=== PATIENT | female | born 1970 | race Caucasian/White ===

== ENCOUNTER → 2023-03-20 | Outpatient (CLI) | payer BC ==
--- NOTE | 2023-03-21 09:02 | MM ---
Reason for Exam: Screening (asymptomatic). Patient History: Menarche at age 17. First Full-Term at age 26. Premenopausal. 2009, Bilateral Implants. Risk Values: Leanna 5 year model risk: 1.0%. NCI Lifetime model risk: 8.9%. Tissue Density: The breast tissue is extremely dense which could obscure a lesion on mammography. Findings: Analyzed By CAD. There is no suspicious group of microcalcifications or new suspicious mass in either breast. Bilateral implants are intact. Overall Assessment: Benign, BI-RAD 2 Management: Screening Mammogram of both breasts in 1 year. . Patient should continue monthly self-breast exams. A clinical breast exam by your physician is recommended on an annual basis. This exam should not preclude additional follow-up of suspicious palpable abnormalities. Note on Leanna scores and lifetime risk: 1. A Leanna score greater than 3% is considered moderate risk. If this is the case, consider specialist referral to assess eligibility for a risk reducing agent. 2. If overall lifetime risk for the development of breast cancer is 20% or higher, the patient may qualify for future screening with alternating mammogram and breast MRI. Electronically signed and approved by: Liborio Tidwell M.D. Radiologis
== END | disposition home or self-care (01) ==
LOC: RADMAMWWP 15:54
PROVIDERS: ATTEND Family Medicine
DX: Z12.31 Encounter for screening mammogram for malignant neoplasm of breast (principal)
CPT/HCPCS: 77063; 77067

== ENCOUNTER → 2023-05-31 | Outpatient (CLI) | payer BC ==
--- NOTE | 2023-05-31 17:07 | US ---
EXAMINATION TYPE: US pelvic complete DATE OF EXAM: 05/31/2023 COMPARISON: NONE CLINICAL INDICATION: Female, 52 years old with history of N92.6 IRREG MENSES; Pt states abnormal mens es, pt states non-stop bleeding in the month of April TECHNIQUE: Transabdominal (TA). Transabdominal sonographic images of the pelvis were acquired. Date of LMP: Beginning of April EXAM MEASUREMENTS: Uterus: 11.2 x 5.1 x 6.6 cm Endometrial Stripe: 0.9 cm Right Ovary: 2.5 x 1.5 x 2.1 cm Left Ovary: 4.3 x 3.1 x 3.7 cm 1. Uterus: Anteverted Heterogeneous, probable fibroid Right side of uterus= 3.6 x 2.9 x 3.6 cm 2. Endometrium: wnl 3. Right Ovary: wnl 4. Left Ovary: Two cystic areas within left ovary- larger one has debris/septations within= 2.1 x 2. 1 x 2.6 cm 5. Bilateral Adnexa: wnl 6. Posterior cul-de-sac: wnl IMPRESSION: 1. No evidence for acute process. 2. Endometrium within normal limits for size. 3. Fibroid uterus. 4. Probable left hemorrhagic ovary.
== END | disposition home or self-care (01) ==
LOC: RADUSWWP 15:36
PROVIDERS: ATTEND Family Medicine
DX: N92.6 Irregular menstruation, unspecified (principal); D25.9 Leiomyoma of uterus, unspecified
CPT/HCPCS: 76856

== ENCOUNTER → 2024-10-15 | Outpatient (CLI) | payer BC ==
--- NOTE | 2024-10-15 09:40 | MM ---
Reason for Exam: Clinical finding. Last mammogram was performed 1 year(s) and 7 month(s) ago. Patient History: Menarche at age 17. First Full-Term at age 26. Premenopausal. 2008, Bilateral Implants. Last menstrual period: 08/22/2024 Risk Values: Leanna 5 year model risk: 1.1%. NCI Lifetime model risk: 8.8%. Prior Study Comparison: 03/20/2023 Bilateral MG 3D screen mammo imp/cad., [facility]. Tissue Density: The breasts are extremely dense, which lowers the sensitivity of mammography. Findings: Bilateral retropectoral silicone implants are redemonstrated. Palpable marker placed along the upper outer quadrant of the right breast. There is underlying area of obscured spiculated density and architectural distortion with associated faint calcifications underlying the palpable marker. Nodular asymmetric density lateral anterior right breast does not persist on additional views. Otherwise, no significant change. Further ultrasound evaluation recommended. Overall Assessment: Incomplete: need additional imaging evaluation, BI-RAD 0 Management: Diagnostic Breast Ultrasound of the right breast. [facility], , 10/15/2024 9:37 AM. Electronically signed and approved by: Meri Blood M.D. Radiologist
--- NOTE | 2024-10-15 10:30 | USB ---
Reason for Exam: Clinical finding. Patient History: Menarche at age 17. First Full-Term at age 26. Premenopausal. 2009, Bilateral Implants. Risk Values: Leanna 5 year model risk: 1.1%. NCI Lifetime model risk: 8.8%. Technique: Method: Whole Breast Handheld. Prior Study Comparison: 03/20/2023 Bilateral MG 3D screen mammo imp/cad., [facility]. Findings: The whole breast of the right breast, the axilla of the right breast and the retroareolar of the right breast were scanned. A complete US of all four quadrants of the breast, axilla, and retro-areolar region were reviewed. At the palpable 10:00 site, 7 cm from the nipple, there is an irregular hypoechoic area estimated to measure 1.4 x 1.2 x 0.8 cm. Some adjacent vascularity is noted. There is very close proximity/abutment with the implant. Tissue sampling recommended. At the 12:00 position, 7 cm from the nipple, there is an oval, slightly lobulated hypoechoic mass with through transmission measuring 1.2 x 1.0 x 0.5 cm. Tissue sampling recommended. At the 9:00 position, 7 cm minimal, there is an oval circumscribed hypoechoic lesion measuring 1.1 x 1.0 x 0.5 cm with through transmission. Tissue sampling recommended. There are numerous borderline enlarged lymph nodes in the right axilla, largest measuring 1.9 x 1.6 x 0.9 cm. Cortical thickening measuring up to nearly 4 mm. Tissue sampling recommended. Overall Assessment: Suspicious, BI-RAD 4 Management: Ultrasound Core Biopsy of the right breast. Palpable area at 10:00, 2 indeterminate lesions at 9:00 and 12:00, and the largest axillary lymph node Results were given to the patient verbally at the time of exam. [facility], , 10/15/2024 10:28 AM. Electronically signed and approved by: Meri Blood M.D. Radiologist
== END | disposition home or self-care (01) ==
LOC: RADMAMWWP 08:18
PROVIDERS: ATTEND Family Medicine
DX: N63.10 Unspecified lump in the right breast, unspecified quadrant (principal); R92.343 Mammographic extreme density, bilateral breasts; Z98.82 Breast implant status
CPT/HCPCS: 77062; 77066

== ENCOUNTER → 2024-10-23 | Day surgery (SDC) | payer BC ==
--- NOTE | 2024-10-28 11:24 | MM ---
Reason for Exam: Post Procedure Mammogram. Last screening mammogram was performed less than 1 month ago. Patient History: Menarche at age 17. First Full-Term at age 26. Premenopausal. 2009, Bilateral Implants. Risk Values: Leanna 5 year model risk: 1.1%. NCI Lifetime model risk: 8.6%. Prior Study Comparison: 03/20/2023 Bilateral MG 3D screen mammo imp/cad., [facility]. 10/15/2024 Right US breast RT, [facility]. 10/15/2024 Bilateral MG 3D diag mammo imp w/cad [facility]SA, [facility]. Tissue Density: Right: The breasts are extremely dense, which lowers the sensitivity of mammography. Pathology Description: Location: 12 o'clock. Cores: 3 Gauge: 12 Pathology Description: Location: 9 o'clock. Marker Left Behind. Needle Type: Celero Cores: 3 Gauge: 12 The procedure of ultrasound guided core biopsy was explained to the patient. Benefits, alternatives, and risks were discussed. An informed consent was then obtained. The patient was placed in supine positioning for imaging and for the procedure. The overlying skin was prepped and draped in usual sterile fashion. Lidocaine buffered with bicarbonate was used as anesthetic into the skin and subcutaneous tissue up to area of concern in the right 9:00 and right 12:00 breast. A ree was made with surgical scalpel. Under ultrasound guidance, a 12-gauge vacuum assisted biopsy gun device was used to obtain 3 core samples were obtained at 9:00 and 3 samples obtained at the 12:00 position.. Following this, a biopsy clip was placed in each lesion. Breast implant remains intact at the conclusion of the study. The patient tolerated the procedure well without any immediate complication. The patient was kept in the radiology department for short stay after the procedure and then discharged home in stable condition. Postprocedure mammogram: The patient was transferred to mammography for physician ordered post procedure mammogram for clip placement verification. Post procedure mammogram demonstrates the clip in appropriate placement. Impression: Successful, uncomplicated ultrasound guided core biopsy of areas of concern in the right breast at 9 and 12:00., full pathology results to follow. [facility], , 10/23/2024 9:09 AM. Pathology Results: Result: Benign. Pathology and radiology were reviewed. Findings are concordant. A. RIGHT BREAST, 9:00, ULTRASOUND GUIDED CORE BIOPSY: Lamar fibroepithelial tissue fragments with myxoid change and features compatible with fibroadenoma with myxoid change and focal microcalcification. Fibrocystic change with focal florid usual ductal hyperplasia present (see note). B. RIGHT BREAST, 12:00, ULTRASOUND GUIDED CORE BIOPSY: Benign and sclerotic fibrous scar with focal 2 mm area of benign fibroadenomatoid hyperplasia/proliferation. Notes To confirm the diagnosis, immunostaining is performed with appropriate control on the tissue block for specimen A. CK5/6 staining shows rare positive staining within the focal area of available florid usual ductal hyperplasia. E-cadherin staining is also positive within this hyperplastic area. 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 Clinical correlation with radiologic studies is suggested, as indicated. Intradepartmental consensus opinion is in agreement with the finding of focal usual ductal hyperplasia in specimen A. Overall Assessment: Benign Assessment: MG diagnostic mammo RT wo CAD - Right: Benign, BI-RAD 2. Management: Diagnostic Breast Ultrasound of the right breast in 6 months. Electronically signed and approved by: Liborio Tidwell M.D. Radiologis
== END ==
LOC: RADUSWWP 07:19
PROVIDERS: ATTEND Surgery
DX: D24.1 Benign neoplasm of right breast (principal); R92.8 Other abnormal and inconclusive findings on diagnostic imaging of breast; L90.5 Scar conditions and fibrosis of skin; N62 Hypertrophy of breast
CPT/HCPCS: 88305; 88342; 88341; 77065; 19083; 19084; A4648

== ENCOUNTER → 2024-10-28 | Day surgery (SDC) | payer BC ==
--- NOTE | 2024-11-19 12:27 | MM ---
Reason for Exam: Post Procedure Mammogram. Last screening mammogram was performed less than 1 month ago. Patient History: Menarche at age 17. First Full-Term at age 26. Premenopausal. 10/23/2024, US biopsy breast add'l VAD RT on the Right side. 10/23/2024, Benign US biopsy breast VAD RT on the right side. 2009, Bilateral Implants. Risk Values: Leanna 5 year model risk: 1.7%. NCI Lifetime model risk: 12.7%. Prior Study Comparison: 03/20/2023 Bilateral MG 3D screen mammo imp/cad., [facility]. 10/15/2024 Bilateral MG 3D diag mammo imp w/cad [facility], [facility]. 10/23/2024 Right MG diagnostic mammo RT wo CAD, [facility]. Tissue Density: Right: The breasts are extremely dense, which lowers the sensitivity of mammography. Pathology Description: Location: axilla. Marker Left Behind. Needle Type: Bard 14g x 10cm Cores: 3 Pathology Description: Location: 10 o'clock. Marker Left Behind. Needle Type: Celero Cores: 2 The procedure of ultrasound guided core biopsy was explained to the patient. Benefits, alternatives, and risks were discussed. Risks included possibility of implant rupture. An informed consent was then obtained. Preprocedure ultrasound redemonstrates heterogeneous hypoechoic ill-defined area 10:00 position 7 cm distance from nipple and a slightly prominent lymph node in the right axilla. The patient was placed in supine positioning for imaging and for the procedure. The overlying skin was prepped and draped in usual sterile fashion. Lidocaine with epinephrine buffered with bicarbonate was used as anesthetic into the skin and subcutaneous tissue up to both areas of concern in the right breast. Under ultrasound guidance, a vacuum assisted biopsy gun device was used to obtain 2 core samples of the 10:00 lesion. Following this, a biopsy clip was left in lesion. Under ultrasound guidance, a 18-gauge Bard device was used to obtain 2 core samples of the axillary lymph node. Following this a biopsy clip was placed. The patient tolerated the procedure well without any immediate complication. The patient was kept in the radiology department for short stay after the procedure and then discharged home in stable condition. Postprocedure mammogram: The patient was transferred to mammography for physician ordered post procedure mammogram for clip placement verification. This report is dictated separately. Impression: Successful, uncomplicated ultrasound guided core biopsy of 2 areas of concern in the right breast, full pathology results to follow. Intermediate index of suspicion noted at time of procedure. [facility], , 10/28/2024 1:46 PM. Pathology Results: Result: Benign, Fibrocystic change. Pathology and radiology were reviewed. Findings are discordant. A. RIGHT BREAST, 10:00, NEEDLE CORE BIOPSY: Proliferative fibrocystic changes including complex sclerosing lesion, moderate usual type ductal hyperplasia and calcifications. See note. B. RIGHT AXILLA, CORE BIOPSY: Minute fragments of benign lymphoid tissue and fibroadipose tissue. Scanty/limited sample. Notes Calponin and smooth muscle myosin heavy chain (SMMHC) immunostains performed on block A1 and evaluated with appropriate positive controls highlight a myoepithelial layer surrounding ductal and glandular structures within the stroma. The results confirm the diagnosis of the specimen as benign. Overall Assessment: Benign Assessment: MG diagnostic mammo RT wo CAD - Right: Suspicious, BI-RAD 4. Management: Surgical Consultation of the right breast. 10:00 palpable area near wing clip shows distortion on mammogram. Consider needle localization and excision. MRI pending. Electronically signed and approved by: Anthony Barnes M.D.
== END ==
LOC: RADUSWWP 12:18
PROVIDERS: ATTEND Surgery
DX: N64.89 Other specified disorders of breast (principal)
CPT/HCPCS: 88305; 88342; 88341; 77065; 19083; 19084; A4648

== ENCOUNTER → 2024-11-14 | Outpatient (CLI) | payer BC ==
[2024-11-14 15:00] VITALS: BP 132/85; PULSE 82; RESP 17; TEMP 98.2
--- NOTE | 2024-11-14 15:37 | P.GSCN ---
History of Present Illness Consult date: 11/14/24 Reason for Consult: abnormal mammogram Requesting physician: Sachin Giang History of present illness: Amber is a 54 year old female seen in consultation for Dr. Giang regarding an abnormal right breast mammogram and ultrasound. On 10-15-24 she underwent a bilateral screening mammogram. This led to a right breast ultrasound. She had a palpable area in the right breast near an area of spiculation on the mammogram. On ultrasound there were four areas for which biopsy was recommended. The 9:00 and 12:00 areas were biopsied on 10-23-24, 9:00 compatable with a fibroadenoma 12:00 fibrous scar on 10-28-24 she had biopsy of two additional sites: 10:00 complex sclerosing lesion axilla biopsy: benign lymphoid tissue All these were personally reviewed and discussed with Dr. Armenta from radiology. The recommendation was the patient should have a MRI done of the breast prior to making a decision to biopsy. The 10:00 lesion was considered discordant but when reviewed with Dr. Armenta, recommendation for a MRI. patient has bilateral breast implants, subpectoral. She is able to feel a lesion in her right breast for about two years, it has not changed but is more consistent able to be felt. It is not painful. She has bilateral breast implants they are about 15 years old. She thinks they are silicone. She is not complaining of any infection in the breast, no nipple discharge, trauma. Caffeine: 1 cup/day nicotine: 10 cigarettes/week chocolate: monthly BCP: used for about 2 years in her 20's hormones: none Family History: none for cancer Hormonal History: menarche: 14 , breast fed: yes, age at first : 26 menopause: still having periods regular Surgical History: none Medical History: none Social History: nicotine: as above alcohol: twice a week/ wine drugs: none Review of Systems - Constitutional Reports sweats - EENT Eyes: denies blurred vision Ears: deny: decreased hearing, tinnitus Ears, nose, mouth and throat: Denies dysphagia - Breasts bilateral: as per HPI - Cardiovascular Denies chest pain, Denies shortness of breath - Respiratory Denies cough, Denies 7 - Gastrointestinal Reports as per HPI - Genitourinary Genitourinary: Reports as per HPI Menstruation: Reports period normal - Musculoskeletal Reports as per HPI - Integumentary Reports as per HPI - Neurological Denies headaches, Denies syncope - Psychiatric Reports as per HPI - Endocrine Reports as per HPI - Hematologic/Lymphatic Denies easy bleeding, Denies easy bruising - Allergic/Immunologic Reports as per HPI, Reports seasonal allergies Past Medical History Past Medical History: No Reported History History of Any Multi-Drug Resistant Organisms: None Reported Past Surgical History: Breast Surgery Additional Past Surgical History / Comment(s): Bilateral breast implants 2010? silicone, under muscle Past Anesthesia/Blood Transfusion Reactions: No Reported Reaction Past Psychological History: No Psychological Hx Reported Smoking Status: Current every day smoker Additional Past Alcohol Use History / Comment(s): 5 cigarettes daily Past Drug Use History: None Reported Medications and Allergies Home Medications Medication Instructions Recorded Confirmed Type No Known Home Medications 10/16/24 11/14/24 History Allergies Allergy/AdvReac Type Severity Reaction Status Date / Time Penicillins Allergy Rash/Hives Verified 10/16/24 10:38 Surgical - Exam Vital Signs Temp Pulse Resp BP Pulse Ox 98.2 F 82 17 132/85 97 11/14/24 14:58 11/14/24 14:58 11/14/24 14:58 11/14/24 14:58 11/14/24 14:58 - General no distress - Eyes normal ocular movement - Neck trachea midline - Respiratory normal respiratory effort, clear to auscultation - Cardiovascular Rhythm: regular Heart Sounds: normal: S1, S2 - Abdomen Abdomen: soft, non tender, no guarding, no rigid, no rebound - Integumentary normal turgor - Neurologic no disoriented, no combative - Musculoskeletal normal gait, normal posture - Psychiatric oriented to time, oriented to person, oriented to place, speech is normal, memory intact Breast Exam: BRA: 34B inspection: Well-healed scars from breast implant surgery, bilateral grade 2 ptosis, bilateral breast implants Palpation: Right breast: Multi positional exam slight increased nodularity at 10 o'clock position, otherwise no dominant masses or nodules of concern, implant in place Right axilla: No adenopathy of concern Left breast: Multi positional exam implant in place, fibrocystic changes, no do minant masses or nodules of concern Left axilla: No adenopathy of concern Results Bilateral mammogram and right breast ultrasound with biopsy sites noted reviewed personally and discussed with Dr. Armenta from radiology, biopsies were performed at 9:00 12:00 10:00 and 4. All were benign. There is some concern that the lesion at 10:00 is discordant. Assessment and Plan Assessment: Impression: Questionable discordant lesion and core biopsy at 10:00 right breast Bilateral breast implants Core biopsy right breast at 9:00 consistent with fibroadenoma, 12:00 benign fibrous scar, 10:00 proliferative fibrocystic changes including complex sclerosing lesion, right axilla: Benign lymph node Plan: After review of radiographs with radiologist recommendation is for bilateral breast MRI prior to needle localization and excision of the lesion at 10:00 Patient to follow-up after bilateral breast MRI Right does not show anything of concern then we have discussed watching the area at 10:00 as well as the other areas with a repeat right breast mammogram and ultrasound in 6 months If the MRI is unable to be performed or it does show anything of concern then excisional biopsy would be recommended CC: Dr. Giang
== END ==
LOC: WWCWWP 14:21
PROVIDERS: ATTEND Surgery
DX: Z12.31 Encounter for screening mammogram for malignant neoplasm of breast (principal); D24.1 Benign neoplasm of right breast; F17.210 Nicotine dependence, cigarettes, uncomplicated; Z88.0 Allergy status to penicillin

== ENCOUNTER → 2024-11-19 | Outpatient (CLI) | payer BC ==
--- NOTE | 2024-12-02 10:58 | BMR ---
EXAM DATE: 11/19/2024 EXAM DESCRIPTION: MRI-Breast Bilat (W/WO Contrast) INDICATION: History of benign biopsies in the right breast. COMPARISON: Comparison was made to prior relevant imaging available in PACS TECHNIQUE: Multiplanar multisequence breast MRI was performed prior to and after administration of 6 mL of Gadobutrol intravenously. Post processing was performed utilizing a [employer] workstation. FINDINGS: There is moderate, symmetric background parenchymal enhancement in breasts that are composed of heterogeneous fibroglandular tissue. RIGHT BREAST: Subpectoral silicone implant is present and appears grossly intact. Review of the dynamic contrast enhanced series shows focal non mass enhancement with associated signal void from biopsy clip in the upper outer mid depth of the breast compatible with benign biopsy results. Subcentimeter mass with signal void from biopsy clip at 9 o'clock position mid to posterior depth of the breast compatible with benign biopsy results. No evidence of rapidly enhancing masses, suspicious enhancement patterns or other abnormalities in the breast. The T2 weighted series show no abnormality. LEFT BREAST: Subpectoral silicone implant is present and appears grossly intact. Review of the dynamic contrast enhanced series shows focal non mass enhancement at 7-8 o'clock position approximately 3 cm from the nipple (series 605, image 296 and series 701 image 64). It measures 0.9 x 0.9 x 1.0 cm and demonstrate progressive benign enhancing kinetics. Otherwise, no suspicious enhancement pattern or other abnormalities in the breast. The T2 weighted series show no abnormality. LYMPH NODES: No axillary or internal mammary lymphadenopathy. IMPRESSION: 1. Right breast: BI-RADS Category 2-benign. Grossly intact right subpectoral silicone implant. No MR evidence of malignancy. 2. Left breast: BI-RADS Category 0-indeterminate. Grossly intact left subpectoral silicone implant. A 1.0 cm non mass enhancement at 7-8 o'clock position approximately 3 cm from the nipple. Recommend second- look ultrasound with ultrasound-guided biopsy if there is suspicious sonographic correlate. If no sonographic correlate, recommend follow-up with MRI in 6 months. OVERALL ASSESSMENT- BI-RADS 0 MTDD
== END | disposition home or self-care (01) ==
LOC: RADMRIMAIN 15:34
PROVIDERS: ATTEND Surgery
DX: R92.8 Other abnormal and inconclusive findings on diagnostic imaging of breast (principal); Z98.82 Breast implant status
CPT/HCPCS: 77049; A9585